=== PATIENT | female | born 1960 | race Caucasian/White ===

== ENCOUNTER → 2021-07-09 | Day surgery (SDC) | payer OTHER ==
[~2021-07-09] MED LIST: ACTONEL35 MG PO; ARMOUR THYROID60 MG PO; FENTANYL CITRATE/PF 100MCG/2 ML INJ ONE; GLYCOPYRROLATE INJ 0.2 MG/ML VIAL ONE; HYDROCHLOROTH12.5 MG PO; KETOROLAC TROMETHAMINE 30 MG/ML VIAL ONE; LIDOCAINE HCL 2% JELLY 5 ML TUBE ONE; LIDOCAINE HCL 2% LOCAL INJ 5 ML SDV VIAL INJ ONE; MIDAZOLAM HCL 2 MG/2 ML VIAL ONE; NEOSTIGMINE 1 MG/ML 10ML VIAL ONE; NEURONTIN300 MG PO; ONDANSETRON HCL INJ 2MG/ML 2ML 2 MG/ML VIAL ONE; POVIDONE IODINE 0.05% 0.05 % ML PO ONE; PRAVASTATIN SOD10 MG PO; PROPOFOL IV EMULSION 10 MG/ML 20 ML VIAL ONE; ROCURONIUM BROMIDE 10 MG/ML 5ML VIAL IV ONE; SEVOFLURANE INHAL SOLN 250 ML PEN BTL ONE; TRAZODONE HCL50 MG PO; VITAMIN C1000 MG PO; VITAMIN E400 UNI1 PO; ZINC50 M1 PO; [UNRECOGNIZED DRUG - REMARK]
[2021-07-09 11:06] VITALS: BP 118/82
== END | disposition home or self-care (01) ==
LOC: OR 07:42
PROVIDERS: ATTEND Otolaryngology Otolaryngology/Facial Plastic Surgery
DX: J34.2 Deviated nasal septum (principal); S02.2XXA Fracture of nasal bones, initial encounter for closed fracture; J34.89 Other specified disorders of nose and nasal sinuses; E03.9 Hypothyroidism, unspecified; W22.09XA Striking against other stationary object, initial encounter; Z88.2 Allergy status to sulfonamides
CPT/HCPCS: 21320; 30520; 93005; J1885; J2001 ×2; J2250; J2405; J2704; J2710; J3010